=== PATIENT | male | born 1960 | race Caucasian/White ===

== ENCOUNTER → 2018-01-17 | Outpatient (CLI) | payer OTHER | END | disposition home or self-care (01) | LOC: CFH 13:28 | PROVIDERS: ATTEND Nurse Practitioner Family | DX: M94.211 Chondromalacia, right shoulder (principal); M75.101 Unspecified rotator cuff tear or rupture of right shoulder, not specified as traumatic; M19.011 Primary osteoarthritis, right shoulder ==

== ENCOUNTER 2018-06-26 09:57 | Observation (INO) | payer OTHER ==
[~2018-06-26] VITALS: Ht 188 cm; Wt 111.5 kg
[~2018-06-26 09:57] MED LIST: LIDOCAINE 1%-EPI 1:100K, 20ML ONE; NEOSPORIN OINT, 15GM ONE
[2018-06-26 10:55] VITALS: BP 115/74
[2018-06-26] MEDS ORDERED: LACTATED RINGERS 1,000 ML IV SCH (10:59)
[2018-06-26] MEDS ORDERED: AMOXICILLIN/CLAV PO (11:02)
[2018-06-26] MEDS ORDERED: TUMERIC PO (11:02)
[2018-06-26] MEDS ORDERED: GLUC-121 PO (11:02)
[2018-06-26] MEDS ORDERED: FLUOXETINE PO (11:02)
[2018-06-26] MEDS ORDERED: VITAMIN D PO (11:02)
[2018-06-26] MEDS ORDERED: MULTIVITAMIN PO (11:02)
[2018-06-26] MEDS ORDERED: FENTANYL PF 250 MCG/5ML ONE (11:51)
[2018-06-26] MEDS ORDERED: MIDAZOLAM 1 MG/ML, 2ML ONE (11:51)
[2018-06-26] MEDS ORDERED: PROPOFOL 10 MG/ML, 20ML ONE (11:52)
[2018-06-26] MEDS ORDERED: OXYcodone 5 MG/5 ML ORAL.SOL UDC PO PRN (12:30)
[2018-06-26] MEDS ORDERED: hydrALAzine 20 MG/ML, 1ML IV PRN (12:30)
[2018-06-26] MEDS ORDERED: MORPHINE SULFATE 4 MG/ML, 1ML IVPush PRN (12:30)
[2018-06-26] MEDS ORDERED: PROMETHAZINE 25 MG/ML, 1ML IV PRN (12:30)
[2018-06-26] MEDS ORDERED: LABETALOL 5MG/ML, 20ML IV PRN (12:30)
[2018-06-26] MEDS ORDERED: ONDANSETRON 2MG/ML, 2ML IV PRN ×2 (12:30→15:30)
[2018-06-26] MEDS ORDERED: PROMETHAZINE 12.5 MG SUPP PR PRN (12:30)
[2018-06-26] MEDS ORDERED: ACETAMINOPHEN 325 MG TABLET PO PRN ×2 (12:30→15:30)
[2018-06-26] MEDS ORDERED: MEPERIDINE/PF 25MG/0.5ML IVPush PRN (12:30)
[2018-06-26] MEDS ORDERED: PROMETHAZINE 25 MG/ML, 1ML IM PRN ×2 (12:30)
[2018-06-26] MEDS ORDERED: FENTANYL PF 100 MCG/2ML IV PRN (12:30)
[2018-06-26] MEDS ORDERED: ONDANSETRON ODT 8 MG PO PRN (12:30)
[2018-06-26] MEDS ORDERED: PROMETHAZINE 25 MG SUPP PR PRN (12:30)
[2018-06-26] MEDS ORDERED: HYDROmorphone 2 MG/ML, 1ML ONE (13:43)
[2018-06-26] MEDS ORDERED: PROMETHAZINE 25 MG/ML, 1ML ONE (13:43)
[2018-06-26] MEDS: HYDROmorphone 2 MG/ML, 1ML IVPush PRN ×3 (14:02→14:35)
[2018-06-26] MEDS ORDERED: HYDROcodone/APAP 5/325 TABLET PO PRN (15:30)
[2018-06-26] MEDS ORDERED: CEFAZOLIN 1,000 MG ONE (16:12)
[2018-06-26] MEDS: D5%-0.45NACL+KCL 20MEQ 1,000 ML IV SCH ×2 (16:23→23:40)
[2018-06-26] MEDS: AMPICILLIN/SULBACTAM 3 GM in SODIUM CHLORIDE 0.9% 100 ML IV SCH ×3 (16:23→21:45)
[2018-06-26] MEDS: DEXAMETHASONE 4 MG/ML, 1ML IV SCH ×2 (16:24→23:42)
[2018-06-26 21:23] VITALS: BP 107/59
[2018-06-27 00:45] VITALS: BP 113/65
[2018-06-27 04:27] VITALS: BP 125/72
[2018-06-27] MEDS: AMPICILLIN/SULBACTAM 3 GM in SODIUM CHLORIDE 0.9% 100 ML IV SCH (05:00)
[2018-06-27 07:22] VITALS: BP 123/66
[2018-06-27] MEDS: DEXAMETHASONE 4 MG/ML, 1ML IV SCH (07:32)
[2018-06-27] MEDS ORDERED: AMOX1TAB64 PO (09:40)
== END 2018-06-27 10:05 | disposition home or self-care (01) ==
LOC: OUT 09:57 → 4NOR 15:08 → OUT 15:49 → DCLOUNGE 06-27 09:45
PROVIDERS: ADMIT Otolaryngology; ATTEND Otolaryngology
DX: L02.11 Cutaneous abscess of neck (principal); M19.90 Unspecified osteoarthritis, unspecified site
CPT/HCPCS: 10060; 87015; 87070; 87075; 87076; 87102; 87116; 87205; 87206; 96365; 96366; 96375; 96376; G0378; J0295; J0690; J1100; J1170; J2250; J2550; J2704; J3010; J3480; J3490; J7120